=== PATIENT | male | born 1940 | race Caucasian/White ===

== ENCOUNTER → 2016-08-02 | Outpatient (CLI) | payer MEDICARE ==
[~2016-08-02] MED LIST: OMNIPAQUE 350 MG/ML, 150 ML BOTTLE ONE
== END | disposition home or self-care (01) ==
LOC: CFH 13:28
PROVIDERS: ATTEND Urology
DX: N28.1 Cyst of kidney, acquired (principal); N20.0 Calculus of kidney; K76.0 Fatty (change of) liver, not elsewhere classified; M51.36 Other intervertebral disc degeneration, lumbar region; K86.1 Other chronic pancreatitis; M47.896 Other spondylosis, lumbar region; Z85.51 Personal history of malignant neoplasm of bladder; Z87.440 Personal history of urinary (tract) infections
CPT/HCPCS: 74178; Q9967